=== PATIENT | male | born 1995 | race Caucasian/White ===

== ENCOUNTER 2018-06-23 04:13 | Emergency (ER) | payer OTHER ==
[~2018-06-23] VITALS: Ht 177.8 cm; Wt 63.5 kg
[~2018-06-23 04:13] MED LIST: PRON INH
[2018-06-23 04:15] VITALS: BP 134/81
[2018-06-23] MEDS ORDERED: predniSONE 20 MG TAB PO ONE (04:20)
[2018-06-23] MEDS ORDERED: predniSONE 20 MG TAB ONE (04:21)
[2018-06-23 04:53] VITALS: BP 126/79
== END 2018-06-23 04:53 | disposition home or self-care (01) ==
LOC: MED 04:13
DX: J45.901 Unspecified asthma with (acute) exacerbation (principal); F17.210 Nicotine dependence, cigarettes, uncomplicated; Z79.899 Other long term (current) drug therapy; Z71.6 Tobacco abuse counseling
CPT/HCPCS: 99283; J7512